=== PATIENT | female | born 2000 | race Caucasian/White ===

== ENCOUNTER 2020-04-19 11:58 | Emergency (ER) | payer MEDICAID ==
[~2020-04-19] VITALS: Ht 157.5 cm; Wt 100.0 kg
[2020-04-19 12:43] VITALS: BP 132/69
[2020-04-19 12:49] LABS: BASO % 0 % (0-3); EOS # 0.2 x10^3/uL (0.0-0.7); EOS % 2 % (0-3); HEMATOCRIT 31.7 % (36.0-47.0); HEMOGLOBIN 9.9 g/dL (12.0-15.5); LYMPH # 2.8 x10^3/uL (1.0-4.8); LYMPH % 28 % (24-48); MEAN CORPUSCULAR HEMOGLOBIN 24 pg (25-35); MEAN CORPUSCULAR HGB CONC 31 g/dL (31-37); MEAN CORPUSCULAR VOLUME 76 fL (79-100); MONO # 0.9 x10^3/uL (0.0-1.1); MONO % 9 % (0-9); NEUT % 61 % (31-73); PLATELET COUNT 287 x10^3/uL (140-400); RED BLOOD COUNT 4.18 x10^6/uL (3.50-5.40); RED CELL DISTRIBUTION WIDTH 15.6 % (11.5-14.5); WHITE BLOOD COUNT 9.9 x10^3/uL (4.0-11.0)
--- NOTE | 2020-04-19 12:51 | PHYS DOC ---
General Adult EDM: Chief Complaint: ABDOMINAL PAIN IN HPI: HPI: Patient is a 19-year-old female who presents with right-sided abdominal pain that radiates to her flank. Patient is 35 weeks . Patient states that pain has been continuous for the last hour. Patient's RIVET DRIVER is at [facility] "I didn't call my OB because last time I had to wait for 45 minutes and nothing was wrong so my mom told me not to call". Patient's OB is Dr. Edmonds at [facility]. "I think I'm in labor". Patient denies taking any vitamins. Patient reports using tobacco while . Denies nausea/vomiting/diarrhea, fevers. Denies dysuria. Review of Systems: Review of Systems: Constitutional: Denies fever or chills Eyes: Denies change in visual acuity HENT: Denies nasal congestion or sore throat Respiratory: Denies cough or shortness of breath Cardiovascular: Denies chest pain or edema GI: Reports abdominal pain, denies nausea, vomiting, bloody stools or diarrhea : Denies dysuria Musculoskeletal: Denies back pain or joint pain Integument: Denies rash Neurologic: Denies headache, focal weakness or sensory changes Endocrine: Denies polyuria or polydipsia Lymphatic: Denies swollen glands Psychiatric: Denies depression or anxiety Allergies: Allergies: Allergies Coded Allergies Type Severity Reaction Last Updated Verified No Known Drug Allergies 04/19/20 No Physical Exam: PE: Constitutional: Well developed, well nourished, no acute distress, non-toxic appearance. [] HENT: Normocephalic, atraumatic, bilateral external ears normal, oropharynx moist, no oral exudates, nose normal. [] Eyes: PERRLA, EOMI, conjunctiva normal, no discharge. [] Neck: Normal range of motion, no tenderness, supple, no stridor. [] Cardiovascular:Heart rate sinus tachycardia, no murmur [] Lungs & Thorax: Bilateral breath sounds clear to auscultation [] Abdomen: Bowel sounds normal, soft, no tenderness, no masses, no pulsatile masses. [] Skin: Warm, dry, no erythema, no rash. [] Back: No tenderness, right CVA tenderness. [] Extremities: No tenderness, no cyanosis, no clubbing, ROM intact, no edema. [] Neurologic: Alert and oriented X 3, normal motor function, normal sensory function, no focal deficits noted. [] Psychologic: Affect normal, judgement normal, mood normal. [] EKG: EKG: [] Radiology/Procedures: Radiology/Procedures: []Right lower quadrant limited abdominal ultrasound INDICATION: 19-year-old female with right-sided abdominal pain radiating to the back. She is 36 weeks . TECHNIQUE: Grayscale and color Doppler imaging of the right lower quadrant abdomen was performed. FINDINGS: No rebound tenderness was observed during scanning of the right lower quadrant abdomen. The appendix was not visualized. A lymph node in the right groin measuring 2.2 x 1.1 x 0.4 cm was incidentally noted. No fluid collection. IMPRESSION: Nondiagnostic right lower quadrant abdominal ultrasound for appendicitis as the appendix was not seen. PROCEDURE: US RENAL BILAT STUDY DATE: 04/19/2020 CLINICAL INDICATION / HISTORY: Reason: RIGHT LOWER QUADRANT AND RIGHT FLANK PAIN / Spl. Instructions: / History: . TECHNIQUE: Real time ultrasound of the retroperitoneum focused on the urinary tract was performed with with hard copy imaging. COMPARISON: Right lower quadrant abdominal ultrasound performed the same day FINDINGS: Ultrasound evaluation demonstrates the kidneys are normal in size and shape with with appropriate echogenicity and cortical thickness. There is no mass, hydronephrosis, or demonstrable stone formation. The right kidney measures 10.3 x 5.9 x 6.2 cm and the left kidney measures 10.3 x5.1 x 6.1 cm. The midpole left kidney shows decreased echogenicity of 4.5 cm diameter that could represent a left renal cyst. IMPRESSION: 1. No hydronephrosis in either kidney. 2. Possible 4.5 cm cyst in the midpole left kidney. EXAM: Limited OB ultrasound INDICATION: Reason: RIGHT LOWER QUADRANT AND RIGHT FLANK PAIN / Spl. Instructions: / History: TECHNIQUE: Real-time obstetrical ultrasound was performed with permanent freeze- frame documentation. COMPARISON: None. FINDINGS: POSITION: Cephalic HEART RATE: 145 bpm AIDAN: 13.8 cm PLACENTA: Anterior CERVICAL LENGTH: Not measured as it was not well seen MATERNAL UTERUS: Unremarkable. MATERNAL ADNEXA: Unremarkable. AGE/DATES: Gestational Age by LMP: 34 weeks 5 days Gestation Age by US: 36 weeks 4 days EDC by LMP: May 26, 2020 EDC by US: May 13, 2020 WEIGHT: 2967 grams +/- 439 grams PERCENTILE WEIGHT: 71% BIOMETRIC PARAMETERS: BPD: 9.0 cm corresponding with 36 weeks 3 days HC: 32.3 cm corresponding with 36 weeks 4 days AC: 32.6 cm corresponding with 36 weeks 4 days FL: 7.2 cm corresponding with 36 weeks 5 days Limited anatomic survey shows unremarkable stomach. IMPRESSION: OB ultrasound demonstrating a single viable fetus in cephalic position. Estimated gestational age of 34 weeks 4 days and EDC of May 13, 2020. Electronically signed by: Pawel Luong MD (04/19/2020 1:50 PM) [id number] DICTATED AND SIGNED BY: PAWEL LUONG MD DATE: 04/19/20 1324 CC: VERONICA SHEIKH APRN; [facility] HOOKER ~MTH0 0 Heart Score: Risk Factors: Risk Factors: DM, Current or recent (<one month) smoker, HTN, HLP, family history of CAD, obesity. Risk Scores: Score 0 - 3: 2.5% MACE over next 6 weeks - Discharge Home Score 4 - 6: 20.3% MACE over next 6 weeks - Admit for Clinical Observation Score 7 - 10: 72.7% MACE over next 6 weeks - Early Invasive Strategies Course & Med Decision Making: Course & Med Decision Making Pertinent Labs and Imaging studies reviewed. (See chart for details) []Patient is a 19-year-old female who presents with right-sided abdominal pain that radiates to her flank. Patient is 35 weeks . Patient states that pain has been continuous for the last hour. Patient's RIVET DRIVER is at [facility] "I didn't call my OB because last time I had to wait for 45 minutes and nothing was wrong so my mom told me not to call". Patient's OB is Dr. Edmonds at [facility]. "I think I'm in labor". Patient denies taking any vitamins. Patient reports using tobacco while . Denies nausea/vomiting/diarrhea, fevers. Denies dysuria. CBC, CMP, lipase, UA ordered. Ultrasound ordered of bilateral kidneys and right lower quadrant. heart tones were 136. Patient's blood pressure is 130/69. UA shows trace leuks, WBC 510. Patient is stating that her OB office is waiting for her to be seen in the office, and she is wanting to leave the emergency room. I have explained to her I have not gotten back ultrasound reports yet and that she has a UTI. Patient states "okay I will wait to be treated for the UTI and my ultrasound reports to come back before I leave".Fosfomycin given in the emergency room to treat UTI. Ultrasound is negative for any acute abnormalities. Patient discharged to home and follow-up with OB when she leaves. Dragon Disclaimer: Dragon Disclaimer: This electronic medical record was generated, in whole or in part, using a voice recognition dictation system. Departure Departure: Impression: Primary Impression: UTI in Qualified Codes: O23.43 - Unspecified infection of urinary tract in , third trimester Referrals: PHILLIP HOOKER (PCP) Patient Instructions: - Urinary Tract Infection Additional Instructions: You were seen in the emergency room today for right lower quadrant right flank pain. Your urine was positive for infection. Fosfomycin was given in the emergency room to treat your UTI. Your ultrasounds were negative for any acute abnormalities. Please follow-up with your RIVET DRIVER when you leave today. Return to the emergency room with worsening symptoms or concerns. EMERGENCY DEPARTMENT GENERAL DISCHARGE INSTRUCTIONS Thank you for coming to [facility] (ED) today and trusting us with you care. We trust that you had a positivie experience in our Emergency Department. If you wish to speak to the department management, you may call the director at [phone]. YOUR FOLLOW UP INSTRUCTIONS ARE FOLLOWS: 1. Do you have a private Doctor? If you do not have a private doctor, please ask for a resource list of physicians or clinics that may be able to assist you with follow up care. 2. The Emergency Physician has interpreted your x-rays. The X-Ray specialist will also review them. If there is a change in the findings, you will be notified in 48 hours when at all possible. 3. A lab test or culture has been done, your results will be reviewed and you will be notified if you need a change in treatment. ADDITIONAL INSTRUCTIONS AND INFORMATION: 1. Your care today has been supervised by a physician who is specially trained in emergency care. Many problems require more than one evaluation for a complete diagnosis and treatment. We recommend that you schedule your follow up appointment as recommended to ensure complete treatment of you illness or injury. If you are unable to obtain follow up care and continue to have a problem, or if your condition worsens, we recommend that you return to the ED. 2. We are not able to safely determine your condition over the phone nor are we able to give sound medical advice over the phone. For these safety reasons, if you call for medical advice we will ask you to come to the ED for further evaluation. 3. If you have any questions regarding these discharge instructions please call the ED at [phone]. SAFETY INFORMATION: In the interest of safety, wellness, and injury prevention; we encourage you to wear your sealbelt, if you smoke; quite smoking, and we encourage family to use a protective helmet for bicycling and other sporting events that present an increased risk for head injury. IF YOUR SYMPTOMS WORSEN OR NEW SYMPTOMS DEVELOP, OR YOU HAVE CONCERNS ABOUT YOUR CONDITION; OR IF YOUR CONDITION WORSENS WHILE YOU ARE WAITING FOR YOUR FOLLOW UP APPOINTMENT; EITHER CONTACT YOUR PRIMARY CARE DOCTOR, THE PHYSICIAN WHOSE NAME AND NUMBER YOU WERE GIVEN, OR RETURN TO THE ED IMMEDIATELY. VERONICA SHEIKH APRN Apr 19, 2020 12:51
[2020-04-19 12:55] LABS: CALCIUM 8.3 mg/dL (8.5-10.1); CREATININE 0.5 mg/dL (0.6-1.0); GFR 155.7; POTASSIUM 4.1 mmol/L (3.5-5.1)
[2020-04-19 12:57] LABS: BILIRUBIN,URINE NEG (NEG); CLARITY,URINE CLEAR; COLOR,URINE YELLOW; GLUCOSE,URINE NEG (NEG)
[2020-04-19 12:58] LABS: BACTERIA,URINE FEW /HPF (0-FEW); NITRITE,URINE NEG (NEG); RBC,URINE OCC /HPF (0-2); SQUAMOUS EPITHELIAL CELL,UR MOD /LPF; UROBILINOGEN,URINE 0.2 mg/dL (0.2 mg/dL)
[2020-04-19 13:00] LABS: ALBUMIN 2.5 g/dL (3.4-5.0); ALBUMIN/GLOBULIN RATIO 0.6 (1.0-1.7); TOTAL BILIRUBIN 0.1 mg/dL (0.2-1.0); TOTAL PROTEIN 6.6 g/dL (6.4-8.2)
[2020-04-19 13:34] LABS: % BANDS 3 % (0-9); % EOS 1 % (0-5); % LYMPHS 30 % (24-48); % MONOS 11 % (0-10); % SEGS 55 % (35-66); PLT ESTIMATE ADEQUATE (ADEQUATE)
[2020-04-19 13:35] LABS: HYPOCHROMIA SLIGHT
--- NOTE | 2020-04-19 13:53 | RAD ---
Right lower quadrant limited abdominal ultrasound INDICATION: 19-year-old female with right-sided abdominal pain radiating to the back. She is 36 weeks . TECHNIQUE: Grayscale and color Doppler imaging of the right lower quadrant abdomen was performed. FINDINGS: No rebound tenderness was observed during scanning of the right lower quadrant abdomen. The appendix was not visualized. A lymph node in the right groin measuring 2.2 x 1.1 x 0.4 cm was incidentally not ed. No fluid collection. IMPRESSION: Nondiagnostic right lower quadrant abdominal ultrasound for appendicitis as the appendix was not seen . PROCEDURE: US RENAL BILAT STUDY DATE: 04/19/2020 CLINICAL INDICATION / HISTORY: Reason: RIGHT LOWER QUADRANT AND RIGHT FLANK PAIN / Spl. Instructions: / History: . TECHNIQUE: Real time ultrasound of the retroperitoneum focused on the urinary tract was performed wit h with hard copy imaging. COMPARISON: Right lower quadrant abdominal ultrasound performed the same day FINDINGS: Ultrasound evaluation demonstrates the kidneys are normal in size and shape with with appro priate echogenicity and cortical thickness. There is no mass, hydronephrosis, or demonstrable stone formation. The right kidney measures 10.3 x 5.9 x 6.2 cm and the left kidney measures 10.3 x5.1 x 6.1 cm. The midpole left kidney shows decreased echogenicity of 4.5 cm diameter that could represent a left r enal cyst. IMPRESSION: 1. No hydronephrosis in either kidney. 2. Possible 4.5 cm cyst in the midpole left kidney. EXAM: Limited OB ultrasound INDICATION: Reason: RIGHT LOWER QUADRANT AND RIGHT FLANK PAIN / Spl. Instructions: / History: TECHNIQUE: Real-time obstetrical ultrasound was performed with permanent freeze-frame documentation. COMPARISON: None. FINDINGS: POSITION: Cephalic HEART RATE: 145 bpm AIDAN: 13.8 cm PLACENTA: Anterior CERVICAL LENGTH: Not measured as it was not well seen MATERNAL UTERUS: Unremarkable. MATERNAL ADNEXA: Unremarkable. AGE/DATES: Gestational Age by LMP: 34 weeks 5 days Gestation Age by US: 36 weeks 4 days EDC by LMP: May 26, 2020 EDC by US: May 13, 2020 WEIGHT: 2967 grams +/- 439 grams PERCENTILE WEIGHT: 71% BIOMETRIC PARAMETERS: BPD: 9.0 cm corresponding with 36 weeks 3 days HC: 32.3 cm corresponding with 36 weeks 4 days AC: 32.6 cm corresponding with 36 weeks 4 days FL: 7.2 cm corresponding with 36 weeks 5 days Limited anatomic survey shows unremarkable stomach. IMPRESSION: OB ultrasound demonstrating a single viable fetus in cephalic position. Estimated gestational age of 34 weeks 4 days and EDC of May 13, 2020. Electronically signed by: Jose Luong MD (04/19/2020 1:50 PM) [id number]
[2020-04-19] MEDS ORDERED: FOSFOMYCIN TROMETHAMINE 3 GM PACKET PO ONE (14:00)
== END 2020-04-19 14:18 | disposition home or self-care (01) ==
LOC: ER 11:58
DX: O23.43 Unspecified infection of urinary tract in pregnancy, third trimester (principal); Z3A.35 35 weeks gestation of pregnancy
CPT/HCPCS: 36415; 76770; 76815; 80053; 81001; 83690; 85007; 85025; 87086; 93975; 99285

== ENCOUNTER 2020-10-31 09:22 | Emergency (ER) | payer MEDICAID ==
[~2020-10-31] VITALS: Ht 157.5 cm; Wt 100.0 kg
[2020-10-31 09:38] VITALS: BP 132/69
--- NOTE | 2020-10-31 09:52 | PHYS DOC ---
Past History Past Medical History: No Pertinent History Past Surgical History: No Surgical History Alcohol Use: Occasionally General Adult EDM: Chief Complaint: ABSCESS HPI: HPI: 19-year-old female presents with abscess to the top of her gluteal cleft. The patient states has been growing for the last 4 days. Her mother attempted to poke a needle in it but it did not give very much drainage. The patient had some leftover Keflex from a previous infection and started taking it 3 days ago. This has not helped. Patient denies fever or chills. It is painful to sit down. She has no other complaints this time. Review of Systems: Review of Systems: Constitutional: Denies fever or chills Eyes: Denies change in visual acuity HENT: Denies nasal congestion or sore throat Respiratory: Denies cough or shortness of breath Cardiovascular: Denies chest pain or edema GI: Denies abdominal pain, nausea, vomiting, bloody stools or diarrhea : Denies dysuria Musculoskeletal: Denies back pain or joint pain Integument: Abscess Neurologic: Denies headache, focal weakness or sensory changes Endocrine: Denies polyuria or polydipsia Lymphatic: Denies swollen glands Psychiatric: Denies depression or anxiety Allergies: Allergies: Allergies Coded Allergies Type Severity Reaction Last Updated Verified No Known Drug Allergies 10/31/20 No Physical Exam: PE: Constitutional: Well developed, well nourished, no acute distress, non-toxic appearance. [] HENT: Normocephalic, atraumatic, bilateral external ears normal, oropharynx moist, no oral exudates, nose normal. [] Eyes: PERRLA, EOMI, conjunctiva normal, no discharge. [] Neck: Normal range of motion, no tenderness, supple, no stridor. [] Cardiovascular:Heart rate regular rhythm, no murmur [] Lungs & Thorax: Bilateral breath sounds clear to auscultation [] Abdomen: Bowel sounds normal, soft, no tenderness, no masses, no pulsatile masses. [] Skin: 3 cm abscess with central fluctuance of the right side of the gluteal cleft. [] Back: No tenderness, no CVA tenderness. [] Extremities: No tenderness, no cyanosis, no clubbing, ROM intact, no edema. [] Neurologic: Alert and oriented X 3, normal motor function, normal sensory function, no focal deficits noted. [] Psychologic: Affect normal, judgement normal, mood normal. [] Current Patient Data: Vital Signs: Vital Signs Date Time Temp Pulse Resp B/P (MAP) Pulse Ox O2 Delivery O2 Flow Rate FiO2 10/31/20 09:38 98.1 122 18 132/69 97 Room Air EKG: EKG: [] Radiology/Procedures: Radiology/Procedures: [] Heart Score: C/O Chest Pain: N/A Risk Factors: Risk Factors: DM, Current or recent (<one month) smoker, HTN, HLP, family history of CAD, obesity. Risk Scores: Score 0 - 3: 2.5% MACE over next 6 weeks - Discharge Home Score 4 - 6: 20.3% MACE over next 6 weeks - Admit for Clinical Observation Score 7 - 10: 72.7% MACE over next 6 weeks - Early Invasive Strategies Course & Med Decision Making: Course & Med Decision Making Pertinent Labs and Imaging studies reviewed. (See chart for details) The patient appears to have a gluteal abscess. We will perform an incision and drain. See note below for more details. I will place the patient on Bactrim for 7 days. We will give the first dose in the emergency room. She is stable for discharge at this time. [] Dragon Disclaimer: Dragon Disclaimer: This electronic medical record was generated, in whole or in part, using a voice recognition dictation system. Departure Departure: Impression: Primary Impression: Abscess of buttock, right Disposition: HOME / SELF CARE / HOMELESS Condition: STABLE Referrals: PHILLIP HOOKER (PCP) Patient Instructions: Abscess, [id number] Scripts Sulfamethoxazole/Trimethoprim (BACTRIM DS TABLET) 1 Each Tablet 1 TAB PO BID for cellulitis for 7 Days, #14 TAB 0 Refills Prov: SEBLE DARBY DO 10/31/20 Incision and Drainage Indication: Abscess of the buttocks Procedure: I obtained verbal consent from the patient for incision and drainage of her buttocks abscess. The patient was laid in appropriate prone position. The area was prepped with alcohol solution. I numbed the skin with 2% lidocaine without epinephrine. I then made a 1 cm incision with a #11 blade. There was purulent drainage. I explored the wound with a sterile Q-tip to break up loculations. There was further purulent drainage. A clean dressing was applied to absorb further drainage. The patient's tetanus is up-to-date. No packing was used. The patient tolerated the procedure well. Complications: None. SEBLE DARBY DO Oct 31, 2020 09:52
[2020-10-31] MEDS ORDERED: SULF1TAB24 PO (10:21)
[2020-10-31] MEDS: SMZ/TMP 800/160MG TABLET. PO ONE (10:28)
== END 2020-10-31 10:30 | disposition home or self-care (01) ==
LOC: ER 09:22
DX: L02.31 Cutaneous abscess of buttock (principal)
CPT/HCPCS: 10060; 99283-25

== ENCOUNTER 2020-12-11 08:50 | Emergency (ER) | payer BC, MEDICAID ==
[~2020-12-11] VITALS: Ht 162.6 cm; Wt 95.0 kg
[~2020-12-11 08:50] MED LIST: SULF1TAB24 PO
[2020-12-11] MEDS ORDERED: LIDOCAINE 1%/EPI 1:100,000 20 ML VIAL. IJ ONE (09:00)
--- NOTE | 2020-12-11 09:08 | PHYS DOC ---
Past History Past Medical History: No Pertinent History Past Surgical History: No Surgical History Alcohol Use: Occasionally General Adult EDM: Chief Complaint: ABSCESS HPI: HPI: Patient is a 19-year-old female history of previous gluteal cleft abscess/pilonidal cyst who presents with recurrent pilonidal cyst. Has been bothering her for the past several days. She is currently 2 months . She has had previous I&D and has been on previous courses of antibiotics. Was seen at this facility in October for similar presentation. She has had a couple of hot flashes, which she attributes to , but no other systemic symptoms. Review of Systems: Review of Systems: Constitutional: Denies fever or chills Eyes: Denies change in visual acuity HENT: Denies nasal congestion or sore throat Respiratory: Denies cough or shortness of breath Cardiovascular: Denies chest pain or edema GI: Denies abdominal pain, nausea, vomiting, bloody stools or diarrhea : Denies dysuria. Reports . Musculoskeletal: Denies back pain or joint pain Integument: Reports abscess in gluteal cleft Neurologic: Denies headache, focal weakness or sensory changes Endocrine: Denies polyuria or polydipsia Lymphatic: Denies swollen glands Psychiatric: Denies depression or anxiety Allergies: Allergies: Allergies Coded Allergies Type Severity Reaction Last Updated Verified No Known Drug Allergies 10/31/20 No Physical Exam: PE: Constitutional: Well developed, well nourished, no acute distress, non-toxic appearance. [] HENT: Normocephalic, atraumatic, bilateral external ears normal, oropharynx moist, no oral exudates, nose normal. [] Eyes: PERRLA, EOMI, conjunctiva normal, no discharge. [] Neck: Normal range of motion, no tenderness, supple, no stridor. [] Cardiovascular:Heart rate regular rhythm, no murmur [] Lungs & Thorax: Bilateral breath sounds clear to auscultation [] Abdomen: Bowel sounds normal, soft, no tenderness, no masses, no pulsatile masses. [] Skin: Warm, dry, no erythema, no rash. [] Back: Top right portion of the gluteal cleft with a fluctuant area with overlying erythema. Approximately 3-4 cm wide in greatest dimension. Extremities: No tenderness, no cyanosis, no clubbing, ROM intact, no edema. [] Neurologic: Alert and oriented X 3, normal motor function, normal sensory function, no focal deficits noted. [] Psychologic: Affect normal, judgement normal, mood normal. [] EKG: EKG: [] Radiology/Procedures: Radiology/Procedures: Indication: Gluteal cleft abscess Procedure: The patient was positioned appropriately and the skin over the incision site was prepped with Betadine. Local anesthesia was infiltrated with 1% lidocaine with epinephrine. An incision was then made over the apex of the 3-4 cm fluctuant abscess and purulent material was expressed. Loculations were loosened with curved drivers. The drainage cavity was then left open without packing. The patients tetanus status is up-to-date. The patient tolerated the procedure well. Complications: None [] Heart Score: C/O Chest Pain: No Risk Factors: Risk Factors: DM, Current or recent (<one month) smoker, HTN, HLP, family history of CAD, obesity. Risk Scores: Score 0 - 3: 2.5% MACE over next 6 weeks - Discharge Home Score 4 - 6: 20.3% MACE over next 6 weeks - Admit for Clinical Observation Score 7 - 10: 72.7% MACE over next 6 weeks - Early Invasive Strategies Course & Med Decision Making: Course & Med Decision Making Pertinent Labs and Imaging studies reviewed. (See chart for details) Patient a 19-year-old female who presents with a gluteal cleft abscess. This has been a recurrent problem. Incised and drained as above. She is currently 2 months , so limited antibiotic options for her surrounding cellulitic changes. Placed on a short course of Keflex. Advised PCP follow-up. Advised that she may need surgical follow-up given her recurrent abscess. Provided with the practice information of the general surgeon. Osei Disclaimer: Osei Disclaimer: This electronic medical record was generated, in whole or in part, using a voice recognition dictation system. Departure Departure: Impression: Primary Impression: Abscess, gluteal cleft Disposition: HOME / SELF CARE / HOMELESS Condition: STABLE Referrals: PHILLIP HOOKER (PCP) SARI REED MD You may need a surgical follow up given the recurrent nature. Call Dr. Reed's office to set up an appointment. Patient Instructions: Abscess, Care After Additional Instructions: Try to keep the area clean and dry. Take antibiotics as prescribed. Please follow up with your PCP and consider surgery follow up given this has been a recurrent problem. Sometime a surgeon can remove an underlying cyst that causes the abscess. Scripts Cephalexin (KEFLEX) 500 Mg Capsule 1 CAP PO TID for cellulitis for 7 Days, #21 CAP Prov: KENDALL BUTLER MD 12/11/20 KENDALL BUTLER MD Dec 11, 2020 09:08
[2020-12-11] MEDS ORDERED: CEPH500C PO (09:18)
[2020-12-11 09:48] VITALS: BP 107/58
== END 2020-12-11 09:26 | disposition home or self-care (01) ==
LOC: ER 08:50
DX: O26.891 Other specified pregnancy related conditions, first trimester (principal); L02.31 Cutaneous abscess of buttock; Z3A.01 Less than 8 weeks gestation of pregnancy
CPT/HCPCS: 10060; 99283-25